=== PATIENT | female | born 1960 | race Caucasian/White ===

== ENCOUNTER 2021-04-06 16:00 | Emergency (ER) | payer MEDICARE, MEDICAID ==
[2021-04-06] MEDS ORDERED: Sodium Chloride 0.9% 10 ML Syringe FLUSH PRN (16:14)
[2021-04-06] MEDS ORDERED: Aspirin 81 MG Tab.Chew PO ONE (16:14)
[2021-04-06] MEDS ORDERED: Lactated Ringers 500 ML IV ONE (17:37)
[2021-04-06] MEDS ORDERED: Potassium Chloride 20 MEQ Tab.ER PO ONE (17:38)
[2021-04-06] MEDS ORDERED: Iopamidol 755 Mg/ML 100 ML Bottle IVPUSH ONE (17:46)
[2021-04-06] MEDS ORDERED: Sodium Chloride 0.9% 10 ML Syringe FLUSH ONE (17:46)
[2021-04-06] MEDS ORDERED: Sodium Chloride 0.9% 100 ML IV SCH (18:00)
== END 2021-04-06 19:59 | disposition home or self-care (01) ==
LOC: JD.ED 16:00
DX: R07.89 Other chest pain (principal); E78.00 Pure hypercholesterolemia, unspecified; I10 Essential (primary) hypertension; J44.9 Chronic obstructive pulmonary disease, unspecified; E11.9 Type 2 diabetes mellitus without complications; Z72.0 Tobacco use; Z88.8 Allergy status to other drugs, medicaments and biological substances
CPT/HCPCS: 36415; 71045; 71045-26; 71275; 71275-26; 80053; 81001; 83735; 83880; 84484; 85025; 85379; 85610; 87086; 93005; 99285-25; A9270-GY; J7120; Q9967